=== PATIENT | male | born 1980 | race Caucasian/White ===

== ENCOUNTER 2020-10-07 09:21 | Emergency (ER) | payer SELFPAY ==
[~2020-10-07] VITALS: Ht 167.6 cm; Wt 86.1 kg
[2020-10-07 09:31] VITALS: BP 119/64
--- NOTE | 2020-10-07 10:25 | NUR ---
XRAY RESULTS BACK, PT FOR RECHECK.
--- NOTE | 2020-10-07 11:27 | NUR ---
AIR STIRRUP APPLIED, CANE PROVIDED.
== END 2020-10-07 11:30 | disposition home or self-care (01) ==
LOC: ED 10:30
DX: S93.401A Sprain of unspecified ligament of right ankle, initial encounter (principal); Z20.828 Contact with and (suspected) exposure to other viral communicable diseases; S93.601A Unspecified sprain of right foot, initial encounter; F17.200 Nicotine dependence, unspecified, uncomplicated; X50.1XXA Overexertion from prolonged static or awkward postures, initial encounter; Y93.89 Activity, other specified; Y92.89 Other specified places as the place of occurrence of the external cause; Y99.8 Other external cause status
CPT/HCPCS: 87635; 99284